=== PATIENT | male | born 1995 | race Two or more races ===

== ENCOUNTER 2021-05-15 00:54 | Emergency (ER) | payer SELFPAY ==
[~2021-05-15] VITALS: Ht 172.7 cm; Wt 73.0 kg
[2021-05-15] MEDS ORDERED: VISCOUS LIDOCAINE 2% 15 ML UDC PO STA (01:19)
[2021-05-15] MEDS ORDERED: MAGNESIUM/ALUMINUM HYDROXIDE/SIMETHICONE 30ML UDC PO STA (01:19)
[2021-05-15] MEDS ORDERED: ONDANSETRON HCL 4MG/2ML INJ IV STA (01:19)
[2021-05-15] MEDS ORDERED: MORPHINE SULFATE 4 MG/ML CPJ (NOT FOR IM USE) IV STA (01:19)
[2021-05-15 01:47] LABS: BASOPHILS % 0.4 % (0.0-2.0); EOSINOPHILS % 3.2 % (0.0-5.0); HEMOGLOBIN. 14.7 g/dL (14.0-18.0); LYMPHOCYTES % 31.7 % (20.0-50.0); MEAN CORPUSCULAR HEMOGLOBIN 28.9 pg (28.0-32.0); MEAN CORPUSCULAR VOLUME 82.7 fL (80.0-94.0); MEAN PLATELET VOLUME 8.6 fl (7.4-10.4); MONOCYTES % 7.7 % (2.0-8.0); PLATELET 266 x1000/uL (130-400); RED BLOOD CELL COUNT 5.08 mill/uL (4.7-6.1); RED CELL DISTRIBUTION WIDTH 13.7 % (11.6-14.6)
[2021-05-15 01:53] LABS: CHLORIDE 107 mEq/L (98-107)
[2021-05-15 02:00] LABS: ETHANOL BLOOD < 10 mg/dL
[2021-05-15 02:21] LABS: CLARITY URINE CLEAR (CLEAR); COLOR URINE YELLOW (YELLOW); KETONES URINE NEGATIVE (NEGATIVE); LEUKOCYTE ESTERASE URINE NEGATIVE (NEGATIVE); NITRITE URINE NEGATIVE (NEGATIVE); OCCULT BLOOD URINE NEGATIVE (NEGATIVE); PROTEIN URINE NEGATIVE (NEGATIVE); SPECIFIC GRAVITY URINE 1.013 (1.005-1.030); UROBILINOGEN URINE 0.2 E.U./dL (0.2-1.0)
[2021-05-15 02:30] LABS: *BARBITURATES SCREEN URINE NEGATIVE (NEGATIVE); *BENZODIAZEPINES SCREEN URINE NEGATIVE (NEGATIVE)
[2021-05-15 02:31] LABS: *COCAINE SCREEN URINE NEGATIVE (NEGATIVE); CANNABINOID URINE SCREEN NEGATIVE (NEGATIVE); METHADONE URINE SCREEN NEGATIVE (NEGATIVE); OPIATES URINE SCREEN NEGATIVE (NEGATIVE); PHENCYCLIDINE URINE SCREEN NEGATIVE (NEGATIVE)
[2021-05-15 02:32] LABS: *AMPHETAMINES SCREEN URINE NEGATIVE (NEGATIVE)
[2021-05-15] MEDS ORDERED: IOHEXOL-300 100 ML BOTTLE ONE (04:00)
[2021-05-15 04:37] VITALS: BP 147/78
== END 2021-05-15 04:39 | disposition home or self-care (01) ==
LOC: ER 00:54
DX: R10.9 Unspecified abdominal pain (principal); R74.8 Abnormal levels of other serum enzymes
CPT/HCPCS: 36415; 74177; 80053; 80305; 80320; 81003; 83690; 85025; 96374; 96375; 99285; J2270; J2405; Q9967; G0480